=== PATIENT | male | born 1985 | race Caucasian/White ===

== ENCOUNTER 2017-10-16 15:40 | Emergency (ER) | payer OTHER ==
[~2017-10-16] VITALS: Ht 167.6 cm; Wt 92.5 kg
[~2017-10-16 15:40] MED LIST: HYDR-3533 PO; IBUP-238 PO; META800 PO; ZOFR4TAB3 SL
[2017-10-16] MEDS ORDERED: IOHEXOL 350 MG/ML 10 ML VIAL (for RAD DIAG) IVCONTRAST ONE (15:41)
[2017-10-16 15:42] VITALS: BP 140/92; PULSE 98; RESP 16; TEMP 98.6; O2SAT 97
[2017-10-16] MEDS ORDERED: SODIUM CHLOR 0.9% 1000 ML INJ 1,000 ML IV ONE ×2 (15:55→16:00)
[2017-10-16] MEDS ORDERED: SODIUM CHLORIDE 0.9% FLUSH 10 ML FLUSH IVF PRN (16:00)
[2017-10-16] MEDS ORDERED: DICYCLOMINE HCL 10 MG CAP PO ONE (16:00)
[2017-10-16] MEDS ORDERED: KETOROLAC TROMETHAMINE 30 MG/ML (IVP) VIAL IV PUSH ONE (16:00)
[2017-10-16] MEDS ORDERED: METOCLOPRAMIDE HCL 10 MG/2 ML VIAL IV PUSH ONE (16:00)
--- NOTE | 2017-10-16 16:05 | PD ---
HPI Chief Complaint: GI Complaint Time Seen by Provider: 15:46 Travel History International Travel<30 days: No Contact w/Intl Traveler<30days: No Traveled to known affect area: No History of Present Illness HPI The patient is a 32-year-old male who presents to the emergency department for nausea, vomiting, diarrhea, and abdominal pain. The patient thought he ate bad steak several days ago that did not taste right, and subsequently a pork chops last night. He denies any other friends or family members having similar symptoms after eating pork chops last night, however, he developed nausea and vomiting. He then developed epigastric abdominal pain that radiates to lower abdomen bilaterally and is associated with diarrhea. He notes approximately 12 episodes of diarrhea since last night which is watery, brown, without any visible blood. The patient thought he possibly had E. coli poisoning. 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 difficile in the past but denies any history of C. difficile infection. He denies any significant foul smell to the stool. He does note some intermittent chills and sweats at home but denies any measurable fever. Symptoms are moderate. Epigastric pain is crampy, sharp, and radiates the lower abdomen bilaterally. Symptoms are moderate. No alleviating factors. PFSH Past Medical History Cardiovascular Problems: Yes (states hx of htn but does not take any meds) Diminished Hearing: No Hypertension: Yes Past Surgical History Surgical History: No Previous Surgery Social History Alcohol Use: Yes (OCCASIONALLY) Tobacco Use: No Substance Use: No Allergies-Medications (Allergen,Severity, Reaction): Coded Allergies: clarithromycin (Verified Allergy, Mild, 10/16/17) Reported Meds & Prescriptions Reported Meds & Active Scripts Active Review of Systems Except as stated in HPI: all other systems reviewed are Neg General / Constitutional: Positive: Chills, No: Fever HENT: Positive: Lightheadedness Cardiovascular: No: Chest Pain or Discomfort Respiratory: No: Shortness of Breath Gastrointestinal: Positive: Nausea, Vomiting, Diarrhea, Abdominal Pain Genitourinary: No: Decreased Urinary Output Musculoskeletal: No: Myalgias Skin: No Rash Neurologic: Positive: Dizziness Physical Exam Narrative GENERAL: Awake, alert, very pleasant 32-year-old male who appears his stated age and is in no acute respiratory distress. SKIN: Focused skin assessment warm/dry. HEAD: Atraumatic. Normocephalic. EYES: Pupils equal and round. No scleral icterus. No injection or drainage. ENT: No nasal bleeding or discharge. Slightly dry mucous membranes. NECK: Trachea midline. No JVD. CARDIOVASCULAR: Regular rate and rhythm. No murmur appreciated. RESPIRATORY: No accessory muscle use. Clear to auscultation. Breath sounds equal bilaterally. GASTROINTESTINAL: Abdomen soft, epigastric tenderness and bilateral lower quadrant tenderness without guarding or rigidity. MUSCULOSKELETAL: No obvious deformities. No clubbing. No cyanosis. No edema. NEUROLOGICAL: Awake and alert. No obvious cranial nerve deficits. Motor grossly within normal limits. Normal speech. PSYCHIATRIC: Appropriate mood and affect; insight and judgment normal. Data Data Last Documented VS Vital Signs Date Time Temp Pulse Resp B/P (MAP) Pulse Ox O2 Delivery O2 Flow Rate FiO2 10/16/17 17:14 81 18 125/80 (95) 100 Room Air 10/16/17 15:42 98.6 Orders Orders Complete Blood Count With Diff (10/16/17 15:55) Comprehensive Metabolic Panel (10/16/17 15:55) Lipase (10/16/17 15:55) Ct Abd/Pel W Iv Contrast(Rout) (10/16/17 ) Iv Access Insert/Monitor (10/16/17 15:55) Ecg Monitoring (10/16/17 15:55) Oximetry (10/16/17 15:55) Sodium Chlor 0.9% 1000 Ml Inj (Ns 1000 M (10/16/17 15:55) Sodium Chloride 0.9% Flush (Ns Flush) (10/16/17 16:00) Metoclopramide Inj (Reglan Inj) (10/16/17 16:00) Sodium Chlor 0.9% 1000 Ml Inj (Ns 1000 M (10/16/17 16:00) Dicyclomine (Bentyl) (10/16/17 16:00) Ketorolac Inj (Toradol Inj) (10/16/17 16:00) Oral Contrast - Adult (10/16/17 16:06) Diatrizoate Liq ( Gastroview Liq) (10/16/17 16:41) Diatrizoate Liq ( Gastrochaparro Liq) (10/16/17 16:41) Ed Discharge Order (10/16/17 18:44) Labs Laboratory Tests Test 10/16/17 16:16 White Blood Count 5.9 TH/MM3 Red Blood Count 5.29 MIL/MM3 Hemoglobin 14.2 GM/DL Hematocrit 43.0 % Mean Corpuscular Volume 81.2 FL Mean Corpuscular Hemoglobin 26.8 PG Mean Corpuscular Hemoglobin Concent 33.0 % Red Cell Distribution Width 11.9 % Platelet Count 191 TH/MM3 Mean Platelet Volume 8.7 FL Neutrophils (%) (Auto) 68.7 % Lymphocytes (%) (Auto) 21.8 % Monocytes (%) (Auto) 8.3 % Eosinophils (%) (Auto) 0.8 % Basophils (%) (Auto) 0.4 % Neutrophils # (Auto) 4.1 TH/MM3 Lymphocytes # (Auto) 1.3 TH/MM3 Monocytes # (Auto) 0.5 TH/MM3 Eosinophils # (Auto) 0.0 TH/MM3 Basophils # (Auto) 0.0 TH/MM3 CBC Comment DIFF FINAL Differential Comment Blood Urea Nitrogen 16 MG/DL Creatinine 0.95 MG/DL Random Glucose 102 MG/DL Total Protein 7.6 GM/DL Albumin 4.0 GM/DL Calcium Level 8.8 MG/DL Alkaline Phosphatase 83 U/L Aspartate Amino Transf (AST/SGOT) 21 U/L Alanine Aminotransferase (ALT/SGPT) 45 U/L Total Bilirubin 1.5 MG/DL Sodium Level 136 MEQ/L Potassium Level 3.4 MEQ/L Chloride Level 104 MEQ/L Carbon Dioxide Level 22.5 MEQ/L Anion Gap 10 MEQ/L Estimat Glomerular Filtration Rate 92 ML/MIN Lipase 64 U/L [facility] Medical Decision Making Medical Screen Exam Complete: Yes Emergency Medical Condition: Yes Medical Record Reviewed: Yes Interpretation(s) Laboratory Tests Test 10/16/17 16:16 White Blood Count 5.9 TH/MM3 Red Blood Count 5.29 MIL/MM3 Hemoglobin 14.2 GM/DL Hematocrit 43.0 % Mean Corpuscular Volume 81.2 FL Mean Corpuscular Hemoglobin 26.8 PG Mean Corpuscular Hemoglobin Concent 33.0 % Red Cell Distribution Width 11.9 % Platelet Count 191 TH/MM3 Mean Platelet Volume 8.7 FL Neutrophils (%) (Auto) 68.7 % Lymphocytes (%) (Auto) 21.8 % Monocytes (%) (Auto) 8.3 % Eosinophils (%) (Auto) 0.8 % Basophils (%) (Auto) 0.4 % Neutrophils # (Auto) 4.1 TH/MM3 Lymphocytes # (Auto) 1.3 TH/MM3 Monocytes # (Auto) 0.5 TH/MM3 Eosinophils # (Auto) 0.0 TH/MM3 Basophils # (Auto) 0.0 TH/MM3 CBC Comment DIFF FINAL Differential Comment Blood Urea Nitrogen 16 MG/DL Creatinine 0.95 MG/DL Random Glucose 102 MG/DL Total Protein 7.6 GM/DL Albumin 4.0 GM/DL Calcium Level 8.8 MG/DL Alkaline Phosphatase 83 U/L Aspartate Amino Transf (AST/SGOT) 21 U/L Alanine Aminotransferase (ALT/SGPT) 45 U/L Total Bilirubin 1.5 MG/DL Sodium Level 136 MEQ/L Potassium Level 3.4 MEQ/L Chloride Level 104 MEQ/L Carbon Dioxide Level 22.5 MEQ/L Anion Gap 10 MEQ/L Estimat Glomerular Filtration Rate 92 ML/MIN Lipase 64 U/L Differential Diagnosis Differential diagnosis includes gastroenteritis, infectious diarrhea, IBD, IBS, enteritis, colitis, viral syndrome, dehydration, electrolyte abnormality, food poisoning. Narrative Course IV was established, labs are drawn and sent, and the patient was placed on cardiac telemetry monitoring and continuous pulse oximetry monitoring. The patient was administered Bentyl, Reglan, Toradol, and IV fluids. CT of the abdomen and pelvis with IV and oral contrast was ordered to evaluate for possible colitis. The patient declined morphine for pain. Patient's white count is normal. CMP is unremarkable except for mildly elevated bilirubin 1.5. The patient was reassessed at 4:55 PM, his pain has significantly improved. He did not have any episodes of diarrhea from his initial arrival time up until 4:55 PM. The patient was reevaluated at 645, had no diarrhea. Therefore, C. difficile and stool studies were canceled. CT is negative for enteritis and colitis, no acute findings. The patient was reevaluated his symptoms have significantly improved. He will be provided a work excuse for tomorrow as well as Zofran and Bentyl as needed. Clear liquid diet and advance as tolerated. Follow-up with a primary physician. Return if symptoms worsen or progress. Diagnosis Primary Impression: Gastroenteritis Patient Instructions: General Instructions Additional Instructions: Medications as directed. Clear liquid diet and advance as tolerated. Plenty fluids to stay hydrated. Work excuse for today and tomorrow. Return if symptoms worsen or progress. Please provide the patient a copy of his CT results and lab results at discharge. Med/Other Pt SpecificInfo: Prescription(s) given Scripts Ondansetron Odt (Zofran Odt) 4 Mg Tab 4 MG SL Q6HR Y for Nausea/Vomiting, #10 TAB 0 Refills Prov: Rajinder Estrella MD 10/16/17 Dicyclomine (Bentyl) 10 Mg Cap 10 MG PO TID Y for Bowel Management, #12 CAP 0 Refills Prov: Rajinder Estrella MD 10/16/17 Disposition: 01 DISCHARGE HOME Condition: Stable Rajinder Estrella MD October 16, 2017 16:05
[2017-10-16 16:14] VITALS: BP 120/67; PULSE 86; RESP 18; O2SAT 98
[2017-10-16 16:24] VITALS: O2SAT 98
[2017-10-16 16:31] LABS: AUTOMATED NEUTROPHIL # 4.1 TH/MM3 (1.8-7.7); BASOPHIL % 0.4 % (0.0-2.0); EOSINOPHIL % 0.8 % (0.0-4.0); HEMOGLOBIN 14.2 GM/DL (13.0-17.0); LYMPH % 21.8 % (9.0-44.0); LYMPHOCYTE # 1.3 TH/MM3 (1.0-4.8); MEAN CELL VOLUME 81.2 FL (80.0-100.0); MEAN CORPUSCULAR HEMOGLOBIN 26.8 PG (27.0-34.0); MEAN PLATELET VOLUME 8.7 FL (7.0-11.0); MONO % 8.3 % (0.0-8.0); MONOCYTE # 0.5 TH/MM3 (0-0.9); NEUT % 68.7 % (16.0-70.0); PLATELET COUNT 191 TH/MM3 (150-450); RED BLOOD COUNT 5.29 MIL/MM3 (4.50-5.90); RED CELL DISTRIBUTION WIDTH 11.9 % (11.6-17.2); WHITE BLOOD COUNT 5.9 TH/MM3 (4.0-11.0)
[2017-10-16 16:38] LABS: CHLORIDE 104 MEQ/L (98-107); SODIUM (NA) 136 MEQ/L (136-145)
[2017-10-16] MEDS ORDERED: DIATRIZOATE MEGLUM/DIATRIZOATE SOD 9 ML CUP ONE ×2 (16:41)
[2017-10-16 16:42] LABS: BICARBONATE 22.5 MEQ/L (21.0-32.0); BLOOD UREA NITROGEN 16 MG/DL (7-18); CALCIUM 8.8 MG/DL (8.5-10.1); GLUCOSE,RANDOM 102 MG/DL (74-106)
[2017-10-16 16:45] LABS: ALT (GPT) 45 U/L (12-78); AST (GOT) 21 U/L (15-37); CREATININE 0.95 MG/DL (0.60-1.30); GLOMERULAR FILTRATION RATE 92 ML/MIN (>89)
[2017-10-16 16:47] LABS: TOTAL BILIRUBIN ADULT 1.5 MG/DL (0.2-1.0); TOTAL PROTEIN 7.6 GM/DL (6.4-8.2)
[2017-10-16 16:48] LABS: ALKALINE PHOSPHATASE 83 U/L (45-117)
[2017-10-16 17:14] VITALS: BP 125/80; PULSE 81; RESP 18; O2SAT 100
--- NOTE | 2017-10-16 18:37 | RADRPT ---
EXAM DATE: 10/16/2017 6:25 PM EDT AGE/SEX: 32 years / Male INDICATIONS: Abdominal pain with dizziness, nausea, vomiting, and diarrhea. CLINICAL DATA: This is the patient's initial encounter. Patient reports that signs and symptoms have been present for 1 day and indicates a pain score of 6/10. MEDICAL/SURGICAL HISTORY: Hypertension. None. ORAL CONTRAST: Prescribed oral contrast ingested. RADIATION DOSE: 19.19 CTDI (mGy) COMPARISON: No prior [facility] exams available for comparison. TECHNIQUE: Multiple contiguous axial images were obtained through the abdomen and pelvis following b olus infusion of 100 ml Omnipaque 350 (iohexol) nonionic water-soluble contrast as a single exam do se. Prescribed oral contrast ingested. Using automated exposure control and adjustment of the mA and /or kV according to patient size, the radiation dose was kept as low as reasonably achievable to obta in optimal diagnostic quality images. FINDINGS: Lower Lungs: The visualized lower lungs are clear. Liver: The liver has a homogeneous density without space-occupying lesion. There is no dilation of th e biliary tree. Spleen: Homogeneous density without enlargement. Pancreas: Unremarkable without mass or calcification. Kidneys: Normal in size and shape. No evidence of mass or hydronephrosis. Adrenal Glands: Unremarkable. Aorta: The aorta and proximal iliac vessels are grossly unremarkable without aneurysmal dilation. Bowel/Mesentery: The bowel loops are grossly unremarkable. The cecum and sigmoid colon have a normal configuration. Abdominal Wall: Intact. Retroperitoneum: No evidence of adenopathy in the retrocrural, para-aortic, or deep pelvic regions. Bladder: Contours are smooth. Reproductive Organs: No abnormal masses or calcifications seen. Inguinal: The inguinal region is unremarkable without evidence of adenopathy. Bony Structures: Unremarkable. CONCLUSION: 1. Negative CT Abdomen and Pelvis with contrast. 2. No evidence of ileus, free air or inflammatory changes. Electronically signed by: Sg Mojica MD 10/16/2017 6:36 PM EDT
[2017-10-16] MEDS ORDERED: DICY10 PO (18:50)
[2017-10-16] MEDS ORDERED: ZOFR4TAB3 SL (18:50)
[2017-10-16] MEDS ORDERED: AMLO5 PO (18:58)
[2017-10-16 19:15] VITALS: BP 126/73
== END 2017-10-16 19:15 | disposition home or self-care (01) ==
LOC: PHED 15:40
DX: K52.9 Noninfective gastroenteritis and colitis, unspecified (principal); R42 Dizziness and giddiness; I10 Essential (primary) hypertension; Z88.8 Allergy status to other drugs, medicaments and biological substances
CPT/HCPCS: 74177; 80053; 83690; 85025; 96361; 96374; 96375; 99284; J1885; J2765; J7030; Q9963; Q9967